=== PATIENT | female | born 1990 | race Caucasian/White ===

== ENCOUNTER → 2017-09-03 | Outpatient (CLI) | payer MEDICAID ==
--- NOTE | 2017-09-03 16:30 | Diagnostic Imaging Report ---
EXAMINATION: OB ultrasound. INDICATION: dating. TECHNIQUE: Multiple real-time grayscale images were obtained over the gravid uterus. COMPARISON: There are no prior studies available for comparison. FINDINGS: There is a single live fetus in variable presentation. heart motion was noted and a rate of 155 BPM was recorded. There were no abnormalities identified. The growth parameters are fairly uniform. The placenta is anterior and there is no previa. The amniotic fluid volume is within normal limits. IMPRESSION: 1. There is a single live fetus at approximately 15 weeks 6 days gestation +/-1 week. The EDC is February 19, 2018. 2. There were no abnormalities identified. 3. The growth parameters are fairly uniform. Biometrical measurements are as follows: Biparietal 3.25 cm, age 16 weeks 1 days. Head circumference 11.53 cm, age 15 weeks 5 days. Abdominal circumference 9.77 cm, age 15 weeks 6 days. Femur length 1.91 cm, age 15 weeks 5 days. Sonographic estimate age: 15 weeks 6 days. Sonographic estimated date of delivery: 02/19/2018. Estimated Weight: 134 gm (+/- 20 gm). LMP percentile: 34%. heart rate: 155 beats per minute. number: 1 of 1. Dictated on workstation # [id number]
== END ==
LOC: RAD 14:22
PROVIDERS: ATTEND Family Medicine
DX: Z36.89 Encounter for other specified antenatal screening (principal); Z3A.15 15 weeks gestation of pregnancy
CPT/HCPCS: 76805

== ENCOUNTER → 2017-10-22 | Outpatient (CLI) | payer MEDICAID, OTHER ==
--- NOTE | 2017-10-22 15:58 | Diagnostic Imaging Report ---
INDICATION: survey. TECHNIQUE: Multiple real-time grayscale images were obtained over the gravid uterus. COMPARISON: 09/03/2017. FINDINGS: There is a single live fetus in a cephalic presentation. Placenta is anterior. The amniotic fluid volume is normal. heart rate is recorded at 160 beats per minute. kidneys, bladder, and stomach are unremarkable. brain is unremarkable, although the right ventricle was not as well seen. There is a four-chamber heart. There is a three-vessel cord but cord insertion was not well visualized. spine is limited in evaluation. Biometrical measurements are as follows: Biparietal 5.61 cm, age 23 weeks 1 days. Head circumference 20.63 cm, age 22 weeks 6 days. Abdominal circumference 17.28 cm, age 22 weeks 2 days. Femur length 3.84 cm, age 22 weeks 3 days. Sonographic estimate age: 22 weeks 5 days. Sonographic estimated date of delivery: 02/20/18. Estimated Weight: 496 gm (+/- 72 gm). LMP percentile: 21%. heart rate: 160 beats per minute. number: 1 of 1. IMPRESSION: Single live IUP at approximately 22 to 23 weeks gestational age demonstrating normal interval growth when compared with prior exam from 09/03/2017. survey is unremarkable, although spine and cord insertion evaluation was somewhat limited. In addition, portions of the intracranial evaluation were limited. Followup ultrasound could be performed for further evaluation. Dictated by: Dictated on workstation # [id number]
== END ==
LOC: RAD 14:54
PROVIDERS: ATTEND Family Medicine
DX: Z36.89 Encounter for other specified antenatal screening (principal); Z3A.22 22 weeks gestation of pregnancy
CPT/HCPCS: 76805

== ENCOUNTER 2018-02-04 13:59 | Inpatient (IN) | payer MEDICAID, OTHER ==
[~2018-02-04] VITALS: Ht 153.7 cm; Wt 74.8 kg
[2018-02-04] MEDS ORDERED: PREN-37 PO (14:19)
[2018-02-04 14:37] VITALS: BP 113/67
--- OUTSIDE RECORDS SUMMARY | 2018-02-12 12:06 | XMS REPORT ---
Author Author ESMER FIERRO Organization [facility] Address [address] [place] [address] Care Team Providers Care Auto Electrical Technician Name Role Phone ESMER FIERRO Unavailable PROBLEMS Type Condition ICD9-CM Code ZRO66-TF Code Onset Dates Condition Status SNOMED Code Problem Previous section complicating O34.219 Active 798828022 ALLERGIES No Information ENCOUNTERS Encounter Location Date Diagnosis [place] [address] [place] [id number] [place] [address] 81231- 3491 Jan, [place] [address] [address]402- 2029 Jan, 38 weeks gestation of Z3A.38 ; Third trimester Z34.93 and Previous section complicating O34.219 [facility] [id number] [place] [address] 88072- 4010 Dec, Third trimester Z34.93 and 36 weeks gestation of Z3A.36 [place] [id number] [place] [address] 25687- 9702 Dec, 34 weeks gestation of Z3A.34 and Third trimester Z34.93 [place] [id number] [place] [address] 65880- 4243 Nov, care in third trimester Z34.93 ; 32 weeks gestation of Z3A.32 and Previous section complicating O34.219 [place] [id number] [place] [address] 23865- 6178 Nov, care in third trimester Z34.93 ; 30 weeks gestation of Z3A.30 and Encounter for immunization Z23 [place] [id number] [place] [address] 75901- 3075 14 Oct, 2017 Second trimester Z34.92 [place] [address], [place] [address] 9144 Oct, Second trimester Z34.92 ; 25 weeks gestation of Z3A.25 and Previous section complicating O34.219 [place] [address], [place] [address] 7884 14 Sep, 2017 22 weeks gestation of Z3A.22 [place] [id number] [place] [address] 13696- 8591 September, Second trimester Z34.92 ; 20 weeks gestation of Z3A.20 and Previous section complicating O34.219 [place] [address], [place] [address]- 1354 Jul, [place] [id number] [place] [address] 36787- 6448 Jul, Second trimester Z34.92 and 15 weeks gestation of Z3A.15 [place] [id number] [place] [address] 70289- 6134 Jul, [place] [id number] [place] [address] 37818- 9219 Jul, Normal in multigravida Z34.80 ; 11 weeks gestation of Z3A.11 and Previous section complicating O34.219 [place] [address] [place] [address] 26972- 5414 Jul, [place] [address], [place] [address]- 6946 Jul, Encounter for test Z32.00 IMMUNIZATIONS No Known Immunizations SOCIAL HISTORY Never Assessed REASON FOR VISIT OB f/u -- edward vail PLAN OF CARE Activity Details Follow Up 2 Weeks Reason: VITAL SIGNS Height 4'11" in 2017-12-21 Weight 158.6 lbs 2017-12-21 Temperature 97.2 degrees Fahrenheit 2017-12-21 Heart Rate 78 bpm 2017-12-21 Respiratory Rate 18 2017-12-21 BMI 32.03 kg/m2 2017-12-21 Blood pressure systolic 118 mmHg 2017-12-21 Blood pressure diastolic 76 mmHg 2017-12-21 MEDICATIONS Medication Instructions Dosage Frequency Start Date End Date Duration Status Vitamins - (Dis) Active RESULTS Name Result Date Reference Range UA OB DIP (IN HOUSE) 2017-12-21 Glucose neg Protein trace PROCEDURES Procedure Date Ordered Result Body Site URINE-NO MICRO December 21, 2017 INSTRUCTIONS MEDICATIONS ADMINISTERED No Known Medications MEDICAL (GENERAL) HISTORY Type Description Date Surgical History 10/2009 Surgical History 03/2013
--- OUTSIDE RECORDS SUMMARY | 2018-02-12 12:06 | XMS REPORT ---
Author Author ESMER FIERRO Organization [facility] Address [address] [place] [address] Care Team Providers Care Furnace Tapper Name Role Phone ESMER FIERRO Unavailable PROBLEMS Type Condition ICD9-CM Code LOG54-VE Code Onset Dates Condition Status SNOMED Code Problem Previous section complicating O34.219 Active [id number] ALLERGIES No Information ENCOUNTERS Encounter Location Date Diagnosis [place] [address] [id number] [place] [address] 31455- 3673 Jan, [place] [address] [address]- 7411 Jan, 38 weeks gestation of Z3A.38 ; Third trimester Z34.93 and Previous section complicating O34.219 [facility] [id number] [place] [address] 72847- 9294 Dec, Third trimester Z34.93 and 36 weeks gestation of Z3A.36 [place] [id number] [place] [address] 19531- 7984 Dec, 34 weeks gestation of Z3A.34 and Third trimester Z34.93 [place] [id number] [place] [address] 30576- 2337 Nov, care in third trimester Z34.93 ; 32 weeks gestation of Z3A.32 and Previous section complicating O34.219 [place] [id number] [place] [address] 67640- 4845 Nov, care in third trimester Z34.93 ; 30 weeks gestation of Z3A.30 and Encounter for immunization Z23 [place] [id number] [place] [address] 18912- 9906 14 Oct, 2017 Second trimester Z34.92 [place] [address] [place] [address] 81907- 5536 07 Oct, 2017 Second trimester Z34.92 ; 25 weeks gestation of Z3A.25 and Previous section complicating O34.219 [place] [address], [place] [address] 3883 14 Sep, 2017 22 weeks gestation of Z3A.22 [place] [id number] [place] [address] 02249- 5624 03 Sep, 2017 Second trimester Z34.92 ; 20 weeks gestation of Z3A.20 and Previous section complicating O34.219 [place] [id number] [place] [address] 97563- 0292 Jul, [place] [id number] [place] [address] 62423- 3669 Jul, Second trimester Z34.92 and 15 weeks gestation of Z3A.15 [place] [id number] [place] [address] 57331- 2588 Jul, [place] [id number] [place] [address] 99777- 4007 Jul, Normal in multigravida Z34.80 ; 11 weeks gestation of Z3A.11 and Previous section complicating O34.219 [place] [address] [place] [address] 16202- 7463 Jul, [place] [address] [place] [address] 91388- 7656 Jul, Encounter for test Z32.00 IMMUNIZATIONS Vaccine Route Administration Date Status TDAP (BOOSTRIX) IM Intramuscular December 10, 2017 Administered SOCIAL HISTORY Never Assessed REASON FOR VISIT OB 4wk f/u -- edward vail PLAN OF CARE Activity Details Follow Up 2 Weeks Reason: Pending Test UA OB DIP (IN HOUSE) VITAL SIGNS Height 4'11" in 2017-12-10 Weight 156.0 lbs 2017-12-10 Temperature 97.0 degrees Fahrenheit 2017-12-10 BMI 31.50 kg/m2 2017-12-10 Blood pressure systolic 116 mmHg 2017-12-10 Blood pressure diastolic 68 mmHg 2017-12-10 MEDICATIONS Medication Instructions Dosage Frequency Start Date End Date Duration Status Vitamins - (Dis) Active RESULTS No Results PROCEDURES Procedure Date Ordered Result Body Site URINE-NO MICRO December 10, 2017 TDAP (BOOSTRIX) December 10, 2017 SINGLE IMMUNIZATION ADMIN December 10, 2017 INSTRUCTIONS MEDICATIONS ADMINISTERED No Known Medications MEDICAL (GENERAL) HISTORY Type Description Date Surgical History 10/2009 Surgical History 03/2013
--- OUTSIDE RECORDS SUMMARY | 2018-02-12 12:07 | XMS REPORT ---
Author Author ESMER FIERRO Organization [facility] Address [address] [place] [address] Care Team Providers Care Title 1 Tutor Name Role Phone ESMER FIERRO Unavailable PROBLEMS Type Condition ICD9-CM Code FMW57-EV Code Onset Dates Condition Status SNOMED Code Problem Previous section complicating O34.219 Active 145230079 ALLERGIES No Information ENCOUNTERS Encounter Location Date Diagnosis [place] [id number] [place] [address] 50548- 5282 Jan, [place] [id number] [place] [address] 46344- 4861 Jan, [place] [id number] [place] [address] 76390- 7318 Dec, [place] [id number] [place] [address] 92960- 3439 Dec, 34 weeks gestation of Z3A.34 and Third trimester Z34.93 [place] [address] [place] [address] 46937- 0223 Nov, care in third trimester Z34.93 ; 32 weeks gestation of Z3A.32 and Previous section complicating O34.219 [facility] [address] [place] [address] 99289- 2434 Nov, care in third trimester Z34.93 ; 30 weeks gestation of Z3A.30 and Encounter for immunization Z23 [place] [id number] [place] [address] 02632- 3933 Oct, Second trimester Z34.92 [place] [id number] [place] [address] 90625- 0229 Oct, Second trimester Z34.92 ; 25 weeks gestation of Z3A.25 and Previous section complicating O34.219 [place] [address], [place] [address]- 8588 September, 22 weeks gestation of Z3A.22 [place] [address], [place] [address]- 1521 September, Second trimester Z34.92 ; 20 weeks gestation of Z3A.20 and Previous section complicating O34.219 [place] [address], [place] [address]- 7998 Jul, [place] [id number] [place] [address] 33170- 9001 Jul, Second trimester Z34.92 and 15 weeks gestation of Z3A.15 [place] [id number] [place] [address] 80587- 8847 Jul, [place] [id number] [place] [address] 47666- 9959 Jul, Normal in multigravida Z34.80 ; 11 weeks gestation of Z3A.11 and Previous section complicating O34.219 [place] [address], [place] [address]- 7769 Jul, [place] [address] [place] [address] 36031- 7460 Jul, Encounter for test Z32.00 IMMUNIZATIONS No Known Immunizations SOCIAL HISTORY Never Assessed REASON FOR VISIT Ultrasound apt. PLAN OF CARE VITAL SIGNS MEDICATIONS Unknown Medications RESULTS Name Result Date Reference Range Ultrasound : OB, Follow-up 2017-10-22 PROCEDURES No Known procedures INSTRUCTIONS MEDICATIONS ADMINISTERED No Known Medications MEDICAL (GENERAL) HISTORY Type Description Date Surgical History 10/2009 Surgical History 03/2013
--- OUTSIDE RECORDS SUMMARY | 2018-02-12 12:07 | XMS REPORT ---
Author Author ESMER FIERRO Organization [facility] Address [address] [place] [address] Care Team Providers Care Adhesive Bonding Machine Operator Name Role Phone ESMER FIERRO Unavailable PROBLEMS Type Condition ICD9-CM Code VPS79-ED Code Onset Dates Condition Status SNOMED Code Problem Previous section complicating O34.219 Active [id number] ALLERGIES No Known Allergies ENCOUNTERS Encounter Location Date Diagnosis [place] [address] [address] [id number] [place] [address] 61355- 1665 Dec, [place] [address] [id number] [place] [address] 13073- 8939 Nov, care in third trimester Z34.93 ; 32 weeks gestation of Z3A.32 and Previous section complicating O34.219 [place] [address] [place] [address] [id number] [place] [address] 25754- 7094 Nov, care in third trimester Z34.93 ; 30 weeks gestation of Z3A.30 and Encounter for immunization Z23 [place] [address] [address] [id number] [place] [address] 66497- 8506 Oct, Second trimester Z34.92 [place] [address] 11624- 8637 Oct, Second trimester Z34.92 ; 25 weeks gestation of Z3A.25 and Previous section complicating O34.219 [place] [address] 33441- 3609 September, 22 weeks gestation of Z3A.22 [place] [address] [id number] [place] [address] 82670- 1821 September, Second trimester Z34.92 ; 20 weeks gestation of Z3A.20 and Previous section complicating O34.219 [place] [address] [place] [address] 68178- 3129 Jul, [place] [address] [address] [id number] [place] [address] 86994- 2067 29 Jul, 2017 Second trimester Z34.92 and 15 weeks gestation of Z3A.15 [place] [address] [address] [id number] [place] [address] 48736- 6733 13 Jul, 2017 [place] [address] [id number] [place] [address] 48911- 0210 Jul, Normal in multigravida Z34.80 ; 11 weeks gestation of Z3A.11 and Previous section complicating O34.219 [place] [address] [id number] [place] [address] 49839- 1879 Jul, [place] [address] [place] [address] [id number] [place] [address] 92276- 5132 Jul, Encounter for test Z32.00 IMMUNIZATIONS No Known Immunizations SOCIAL HISTORY Never Assessed REASON FOR VISIT OB 4wk f/u -- edward vail, patient states she is having nauseas and states is taking a ondasetron prescription from her friend that is and she wants the doctor to prescribed the same for her she doesn't care if the medicine is expensive states will pay for it. PLAN OF CARE Activity Details Follow Up 4 Weeks Reason: VITAL SIGNS Height 4'11" in 2017-08-27 Weight 138.0 lbs 2017-08-27 Temperature 98.7 degrees Fahrenheit 2017-08-27 BMI 27.87 kg/m2 2017-08-27 Blood pressure systolic 110 mmHg 2017-08-27 Blood pressure diastolic 78 mmHg 2017-08-27 MEDICATIONS Unknown Medications RESULTS Name Result Date Reference Range UA OB DIP (IN HOUSE) 2017-08-27 Glucose neg Protein trace PROCEDURES Procedure Date Ordered Result Body Site URINE-NO MICRO August 27, 2017 INSTRUCTIONS MEDICATIONS ADMINISTERED No Known Medications MEDICAL (GENERAL) HISTORY Type Description Date Surgical History 10/2009 Surgical History 03/2013
--- OUTSIDE RECORDS SUMMARY | 2018-02-12 12:07 | XMS REPORT ---
Author Author ESMER FIERRO Organization [facility] Address [address] [place] [address] Care Team Providers Care Perforator Typist Name Role Phone ESMER FIERRO Unavailable PROBLEMS Type Condition ICD9-CM Code ZIC36-IF Code Onset Dates Condition Status SNOMED Code Problem Previous section complicating O34.219 Active [id number] ALLERGIES No Information ENCOUNTERS Encounter Location Date Diagnosis [place] [address] [address] [id number] [place] [address] 51762- 6837 Jan, [place] [id number] [place] [address] 42129- 1526 Jan, [place] [address] [address] [id number] [place] [address] 40300- 9114 Dec, [place] [id number] [place] [address] 63826- 1097 Dec, 34 weeks gestation of Z3A.34 and Third trimester Z34.93 [place] [address] [place] [address] 84214- 3846 Nov, care in third trimester Z34.93 ; 32 weeks gestation of Z3A.32 and Previous section complicating O34.219 [facility] [address] [place] [address] 59302- 2031 Nov, care in third trimester Z34.93 ; 30 weeks gestation of Z3A.30 and Encounter for immunization Z23 [place] [id number] [place] [address] 01380- 2368 Oct, Second trimester Z34.92 [place] [id number] [place] [address] 43130- 1511 Oct, Second trimester Z34.92 ; 25 weeks gestation of Z3A.25 and Previous section complicating O34.219 [place] [id number] [address]- 5804 14 Sep, 2017 22 weeks gestation of Z3A.22 [place] [id number] [place] [address] 27034- 3459 September, Second trimester Z34.92 ; 20 weeks gestation of Z3A.20 and Previous section complicating O34.219 [place] [id number] [address]- 6011 Jul, [place] [id number] [place] [address] 52059- 5876 Jul, Second trimester Z34.92 and 15 weeks gestation of Z3A.15 [place] [address] [id number] [place] [address] 41292- 1711 Jul, [place] [id number] [place] [address] 97794- 3143 Jul, Normal in multigravida Z34.80 ; 11 weeks gestation of Z3A.11 and Previous section complicating O34.219 [place] [address] [address]- 6992 Jul, [place] [address] [id number] [place] [address] 87416- 6134 Jul, Encounter for test Z32.00 IMMUNIZATIONS No Known Immunizations SOCIAL HISTORY Never Assessed REASON FOR VISIT OB 4wk f/u -- edward vail PLAN OF CARE Activity Details Follow Up 4 Weeks Reason: VITAL SIGNS Height 4'11" in 2017-10-01 Weight 142.7 lbs 2017-10-01 Temperature 98.0 degrees Fahrenheit 2017-10-01 Heart Rate 70 bpm 2017-10-01 Respiratory Rate 18 2017-10-01 BMI 28.82 kg/m2 2017-10-01 Blood pressure systolic 108 mmHg 2017-10-01 Blood pressure diastolic 68 mmHg 2017-10-01 MEDICATIONS Medication Instructions Dosage Frequency Start Date End Date Duration Status Vitamins - (Dis) Active RESULTS Name Result Date Reference Range UA OB DIP (IN HOUSE) 2017-10-01 Glucose negative Protein negative PROCEDURES Procedure Date Ordered Result Body Site URINE-NO MICRO October 01, 2017 INSTRUCTIONS MEDICATIONS ADMINISTERED No Known Medications MEDICAL (GENERAL) HISTORY Type Description Date Surgical History 10/2009 Surgical History 03/2013
--- OUTSIDE RECORDS SUMMARY | 2018-02-12 12:07 | XMS REPORT ---
Author Author ESMER FIERRO Organization [facility] Address [address] [place] [address] Care Team Providers Care Systems Trainer Name Role Phone ESMER FIERRO Unavailable PROBLEMS Type Condition ICD9-CM Code AYA20-SY Code Onset Dates Condition Status SNOMED Code Problem Previous section complicating O34.219 Active [id number] ALLERGIES No Information ENCOUNTERS Encounter Location Date Diagnosis [place] [address] [place] [id number] [place] [address] 43477- 3285 Jan, [place] [id number] [place] [address] 71609- 0608 Jan, [place] [address] [place] [id number] [place] [address] 28840- 1666 Dec, Third trimester Z34.93 and 36 weeks gestation of Z3A.36 [place] [id number] [place] [address] 64871- 2239 Dec, 34 weeks gestation of Z3A.34 and Third trimester Z34.93 [place] [address] [place] [address] 31884- 0717 Nov, care in third trimester Z34.93 ; 32 weeks gestation of Z3A.32 and Previous section complicating O34.219 [place] [address] [place] [address] 22773- 3966 Nov, care in third trimester Z34.93 ; 30 weeks gestation of Z3A.30 and Encounter for immunization Z23 [place] [address] [place] [address] 08409- 5771 Oct, Second trimester Z34.92 [place] [address] [address]- 1361 Oct, Second trimester Z34.92 ; 25 weeks gestation of Z3A.25 and Previous section complicating O34.219 [place] [address] [address]- 4823 September, 22 weeks gestation of Z3A.22 [place] [id number] [place] [address] 29686- 0943 September, Second trimester Z34.92 ; 20 weeks gestation of Z3A.20 and Previous section complicating O34.219 [place] [id number] [place] [address] [id number]- 2300 Jul, [place] [id number] [place] [address] 73429- 9253 Jul, Second trimester Z34.92 and 15 weeks gestation of Z3A.15 [place] [id number], [place] [address]- 3181 Jul, [place] [id number] [place] [address] 60025- 9621 Jul, Normal in multigravida Z34.80 ; 11 weeks gestation of Z3A.11 and Previous section complicating O34.219 [place] [address], [place] [address]- 4679 Jul, [place] [address] [place] [address] [phone]- 9715 Jul, Encounter for test Z32.00 IMMUNIZATIONS No Known Immunizations SOCIAL HISTORY Never Assessed REASON FOR VISIT Lab (walk-in) PLAN OF CARE VITAL SIGNS MEDICATIONS Unknown Medications RESULTS No Results PROCEDURES Procedure Date Ordered Result Body Site COMPLETE CBC W/AUTO DIFF WBC November 12, 2017 GLUCOSE TEST November 12, 2017 VENIPUNCT, ROUTINE* November 12, 2017 INSTRUCTIONS MEDICATIONS ADMINISTERED No Known Medications MEDICAL (GENERAL) HISTORY Type Description Date Surgical History 10/2009 Surgical History 03/2013
--- OUTSIDE RECORDS SUMMARY | 2018-02-12 12:07 | XMS REPORT ---
Author Author MARGUERITE DUY [facility] Address [address] [place] [address] Care Team Providers Care Ribbon Weaver Name Role Phone MARGUERITESERGEI ANDUJARY Unavailable PROBLEMS Type Condition ICD9-CM Code AHH39-MK Code Onset Dates Condition Status SNOMED Code Problem Previous section complicating O34.219 Active 598064382 ALLERGIES No Known Allergies ENCOUNTERS Encounter Location Date Diagnosis [place] [id number] [place] [address] 34983- 5510 Nov, [place] [id number] [place] [address] 56703- 6037 Oct, Second trimester Z34.92 [place] [id number] [place] [address] 92669- 3906 Oct, Second trimester Z34.92 ; 25 weeks gestation of Z3A.25 and Previous section complicating O34.219 [place] [address] [place] [address] 52131- 1828 September, 22 weeks gestation of Z3A.22 [place] [id number] [place] [address] 52234- 9011 September, Second trimester Z34.92 ; 20 weeks gestation of Z3A.20 and Previous section complicating O34.219 [place] [id number] [place] [address] 48284- 8754 Jul, [place] [id number] [place] [address] 51280- 0525 Jul, Second trimester Z34.92 and 15 weeks gestation of Z3A.15 [place] [address] [place] [address] [place] [address] Jul, [facility] [address] [address] Jul, Normal in multigravida Z34.80 ; 11 weeks gestation of Z3A.11 and Previous section complicating O34.219 [facility] [address] [address] Jul, [facility] [address] [address] Jul, Encounter for test Z32.00 IMMUNIZATIONS No Known Immunizations SOCIAL HISTORY Never Assessed REASON FOR VISIT OB HX PLAN OF CARE VITAL SIGNS MEDICATIONS Unknown Medications RESULTS No Results PROCEDURES No Known procedures INSTRUCTIONS MEDICATIONS ADMINISTERED No Known Medications MEDICAL (GENERAL) HISTORY Type Description Date Surgical History 10/2009 Surgical History 03/2013
--- OUTSIDE RECORDS SUMMARY | 2018-02-12 12:07 | XMS REPORT ---
Author Author ESMER FIERRO Organization [facility] Address [address] [place] [address] Care Team Providers Care Student Union Consultant Name Role Phone ESMER FIERRO Unavailable PROBLEMS Type Condition ICD9-CM Code NDD31-GO Code Onset Dates Condition Status SNOMED Code Problem Previous section complicating O34.219 Active 407003219 ALLERGIES No Information ENCOUNTERS Encounter Location Date Diagnosis [place] [id number] [place] [address] 52158- 6614 Nov, [place] [id number] [place] [address] 32340- 7322 Nov, care in third trimester Z34.93 ; 30 weeks gestation of Z3A.30 and Encounter for immunization Z23 [place] [id number] [place] [address] 49076- 9025 Oct, Second trimester Z34.92 [place] [id number] [place] [address] 86022- 3024 Oct, Second trimester Z34.92 ; 25 weeks gestation of Z3A.25 and Previous section complicating O34.219 [place] [address] [place] [address] 56752- 5542 September, 22 weeks gestation of Z3A.22 [place] [id number] [place] [address] 10323- 4569 September, Second trimester Z34.92 ; 20 weeks gestation of Z3A.20 and Previous section complicating O34.219 [place] [id number] [place] [address] 90485- 5032 Jul, [place] [address] [address] 5[address] 29 Jul, 2017 Second trimester Z34.92 and 15 weeks gestation of Z3A.15 [place] [address] [address] 8003 Jul, [place] [address] [address] 8939 Jul, Normal in multigravida Z34.80 ; 11 weeks gestation of Z3A.11 and Previous section complicating O34.219 [place] [address] [address] 7414 Jul, [place] [address] [address] 5989 Jul, Encounter for test Z32.00 IMMUNIZATIONS No Known Immunizations SOCIAL HISTORY Never Assessed REASON FOR VISIT treatment for positive std's Chlamydia -- [facility] PLAN OF CARE VITAL SIGNS MEDICATIONS Unknown Medications RESULTS No Results PROCEDURES No Known procedures INSTRUCTIONS MEDICATIONS ADMINISTERED No Known Medications MEDICAL (GENERAL) HISTORY Type Description Date Surgical History 10/2009 Surgical History 03/2013
--- OUTSIDE RECORDS SUMMARY | 2018-02-12 12:07 | XMS REPORT ---
Author Author WHITNEY LIEBERMAN Organization [facility] [place] Address [address] [place] [address] Care Team Providers Care Marketing Services Manager Name Role Phone LUISANA WHITNEY Unavailable PROBLEMS Type Condition ICD9-CM Code ZPY46-BA Code Onset Dates Condition Status SNOMED Code Problem Previous section complicating O34.219 Active 088337479 ALLERGIES No Information ENCOUNTERS Encounter Location Date Diagnosis [place] [id number] [place] [address] 53612- 5331 Nov, [place] [id number] [place] [address] 89144- 0289 Oct, Second trimester Z34.92 [place] [id number] [place] [address] 33500- 6348 Oct, Second trimester Z34.92 ; 25 weeks gestation of Z3A.25 and Previous section complicating O34.219 [place] [address] [place] [address] 01229- 8852 September, 22 weeks gestation of Z3A.22 [place] [address] [place] [address] 92327- 0864 September, Second trimester Z34.92 ; 20 weeks gestation of Z3A.20 and Previous section complicating O34.219 [place] [address] [place] [address] 51594- 0446 Jul, [place] [id number] [place] [address] 91474- 7688 Jul, Second trimester Z34.92 and 15 weeks gestation of Z3A.15 [place] [id number] [place] [address] 25208- 2546 Jul, [facility] [place] [address] [facility] [id number] [address] 2546 Jul, Normal in multigravida Z34.80 ; 11 weeks gestation of Z3A.11 and Previous section complicating O34.219 [place] [address] [facility] [place] [id number] [address] 2546 Jul, [place] [address] [facility] [place] [id number] [address] 2546 Jul, Encounter for test Z32.00 IMMUNIZATIONS No Known Immunizations SOCIAL HISTORY Never Assessed REASON FOR VISIT [facility]AN OF CARE VITAL SIGNS MEDICATIONS Unknown Medications RESULTS Name Result Date Reference Range TEST, URINE (IN HOUSE) 2017-07-03 RESULTS POSITIVE Lot # [id number] Control + Exp date 09/2018 PROCEDURES Procedure Date Ordered Result Body Site URINE TEST Jul 03, 2017 INSTRUCTIONS MEDICATIONS ADMINISTERED No Known Medications MEDICAL (GENERAL) HISTORY Type Description Date Surgical History 10/2009 Surgical History 03/2013
--- OUTSIDE RECORDS SUMMARY | 2018-02-12 12:07 | XMS REPORT ---
Author Author ESMER FIERRO Organization [facility] Address [address] [place] [address] Care Team Providers Care Network Systems Analyst Name Role Phone ESMER FIERRO Unavailable PROBLEMS Type Condition ICD9-CM Code WSK21-FX Code Onset Dates Condition Status SNOMED Code Problem Previous section complicating O34.219 Active 577591756 ALLERGIES No Information ENCOUNTERS Encounter Location Date Diagnosis [place] [address] [place] [id number] [place] [address] 18702- 3021 Jan, [place] [id number] [place] [address] 83881- 5690 Jan, [place] [address] [place] [id number] [place] [address] 36463- 6462 Dec, Third trimester Z34.93 and 36 weeks gestation of Z3A.36 [place] [id number] [place] [address] 32773- 6813 Dec, 34 weeks gestation of Z3A.34 and Third trimester Z34.93 [place] [address] [place] [address] 22972- 2987 Nov, care in third trimester Z34.93 ; 32 weeks gestation of Z3A.32 and Previous section complicating O34.219 [place] [address] [place] [address] 38809- 6983 Nov, care in third trimester Z34.93 ; 30 weeks gestation of Z3A.30 and Encounter for immunization Z23 [place] [address] [place] [address] 75170- 7015 Oct, Second trimester Z34.92 [place] [address], [place] [address]- 4599 Oct, Second trimester Z34.92 ; 25 weeks gestation of Z3A.25 and Previous section complicating O34.219 [place] [address], [place] [address]- 4007 September, 22 weeks gestation of Z3A.22 [place] [id number] [place] [address] 51513- 9865 September, Second trimester Z34.92 ; 20 weeks gestation of Z3A.20 and Previous section complicating O34.219 [place] [address] [place] [address] 87740- 2230 Jul, [place] [id number] [place] [address] 69795- 7243 Jul, Second trimester Z34.92 and 15 weeks gestation of Z3A.15 [place] [id number] [place] [address] 24036- 0050 Jul, [place] [id number] [place] [address] 09021- 2687 Jul, Normal in multigravida Z34.80 ; 11 weeks gestation of Z3A.11 and Previous section complicating O34.219 [place] [address], [place] [address]- 3319 Jul, [place] [id number] [place] [address] 22110- 8850 Jul, Encounter for test Z32.00 IMMUNIZATIONS No Known Immunizations SOCIAL HISTORY Never Assessed REASON FOR VISIT OB 4wk f/u -- [facility] PLAN OF CARE Activity Details Follow Up 4 Weeks Reason: VITAL SIGNS Height 4'11" in 2017-11-05 Weight 149 lbs 2017-11-05 Temperature 98.0 degrees Fahrenheit 2017-11-05 BMI 30.09 kg/m2 2017-11-05 Blood pressure systolic 110 mmHg 2017-11-05 Blood pressure diastolic 68 mmHg 2017-11-05 MEDICATIONS Medication Instructions Dosage Frequency Start Date End Date Duration Status Vitamins - (Dis) Active RESULTS Name Result Date Reference Range UA OB DIP (IN HOUSE) 2017-11-05 Glucose negative Protein negative PROCEDURES Procedure Date Ordered Result Body Site URINE-NO MICRO November 05, 2017 INSTRUCTIONS MEDICATIONS ADMINISTERED No Known Medications MEDICAL (GENERAL) HISTORY Type Description Date Surgical History 10/2009 Surgical History 03/2013
--- OUTSIDE RECORDS SUMMARY | 2018-02-12 12:07 | XMS REPORT ---
Author Author ESMER FIERRO Organization [facility] Address [address] [place] [address] Care Team Providers Care Maitre D' Name Role Phone ESMER FIERRO Unavailable PROBLEMS Type Condition ICD9-CM Code JMZ93-KW Code Onset Dates Condition Status SNOMED Code Problem Previous section complicating O34.219 Active 391064361 ALLERGIES No Information ENCOUNTERS Encounter Location Date Diagnosis [place] [id number] [place] [address] 11089- 9223 Nov, [place] [id number] [place] [address] 55145- 4825 Nov, care in third trimester Z34.93 ; 30 weeks gestation of Z3A.30 and Encounter for immunization Z23 [place] [id number] [place] [address] 58374- 7817 Oct, Second trimester Z34.92 [place] [id number] [place] [address] 86530- 8199 Oct, Second trimester Z34.92 ; 25 weeks gestation of Z3A.25 and Previous section complicating O34.219 [place] [address] [place] [address] 09368- 1834 September, 22 weeks gestation of Z3A.22 [place] [id number] [place] [address] 93200- 7258 September, Second trimester Z34.92 ; 20 weeks gestation of Z3A.20 and Previous section complicating O34.219 [place] [id number] [place] [address] 98618- 7060 Jul, [place] [address], [place] [address]- 7928 Jul, Second trimester Z34.92 and 15 weeks gestation of Z3A.15 [place] [address], [place] [address]- 6047 Jul, [place] [address], [place] [address]- 5875 Jul, Normal in multigravida Z34.80 ; 11 weeks gestation of Z3A.11 and Previous section complicating O34.219 [place] [address], [place] [address]- 2333 Jul, [place] [address] [place] [address] 09534- 7573 Jul, Encounter for test Z32.00 IMMUNIZATIONS No Known Immunizations SOCIAL HISTORY Never Assessed REASON FOR VISIT Presumptive Eligibility-Approved PLAN OF CARE VITAL SIGNS MEDICATIONS Unknown Medications RESULTS No Results PROCEDURES No Known procedures INSTRUCTIONS MEDICATIONS ADMINISTERED No Known Medications MEDICAL (GENERAL) HISTORY Type Description Date Surgical History 10/2009 Surgical History 03/2013
--- OUTSIDE RECORDS SUMMARY | 2018-02-12 12:07 | XMS REPORT ---
Author Author ESMER FIERRO Organization [facility] Address [address] [place] [address] Care Team Providers Care Pinmaker Name Role Phone ESMER FIERRO Unavailable PROBLEMS Type Condition ICD9-CM Code RDW18-JD Code Onset Dates Condition Status SNOMED Code Problem Previous section complicating O34.219 Active 779794062 ALLERGIES No Known Allergies ENCOUNTERS Encounter Location Date Diagnosis [place] [id number] [place] [address] 78175- 0858 Dec, [place] [id number] [place] [address] 08433- 9064 Nov, care in third trimester Z34.93 ; 32 weeks gestation of Z3A.32 and Previous section complicating O34.219 [place] [address] [id number] [place] [address] 36319- 4654 Nov, care in third trimester Z34.93 ; 30 weeks gestation of Z3A.30 and Encounter for immunization Z23 [place] [id number] [place] [address] 16118- 7405 Oct, Second trimester Z34.92 [place] [address] 73619- 8156 Oct, Second trimester Z34.92 ; 25 weeks gestation of Z3A.25 and Previous section complicating O34.219 [place] [address] 39030- 0643 September, 22 weeks gestation of Z3A.22 [place] [id number] [place] [address] 37140- 1035 September, Second trimester Z34.92 ; 20 weeks gestation of Z3A.20 and Previous section complicating O34.219 [place] [address], [place] [address]- 8353 29 Jul, 2017 [place] [address], [place] [address]- 3209 29 Jul, 2017 Second trimester Z34.92 and 15 weeks gestation of Z3A.15 [place] [id number] [place] [address] 77832- 8682 13 Jul, 2017 [place] [address] [place] [address] 61613- 1695 Jul, Normal in multigravida Z34.80 ; 11 weeks gestation of Z3A.11 and Previous section complicating O34.219 [place] [address] [place] [address] 98940- 3389 Jul, [place] [id number] [place] [address] 46720- 8286 Jul, Encounter for test Z32.00 IMMUNIZATIONS No Known Immunizations SOCIAL HISTORY Never Assessed REASON FOR VISIT OB-intake -- [facility] PLAN OF CARE Activity Details Follow Up 4 Weeks Reason: Pending Test PAP REFLEX TO HPV IF ASCUS VITAL SIGNS Height 4'11" in 2017-07-30 Weight 135.0 lbs 2017-07-30 Temperature 98.0 degrees Fahrenheit 2017-07-30 BMI 27.26 kg/m2 2017-07-30 Blood pressure systolic 110 mmHg 2017-07-30 Blood pressure diastolic 68 mmHg 2017-07-30 MEDICATIONS Unknown Medications RESULTS No Results PROCEDURES Procedure Date Ordered Result Body Site ASSAY THYROID STIM HORMONE July 30, 2017 RUBELLA ANTIBODY July 30, 2017 VENIPUNCT, ROUTINE* July 30, 2017 No Charge July 30, 2017 TRICHOMONAS ASSAY W/OPTIC July 30, 2017 COMPLETE CBC W/AUTO DIFF WBC July 30, 2017 SPECIMEN HANDLING July 30, 2017 CULTURE, BACTERIA, OTHER July 30, 2017 URINE CULTURE/COLONY COUNT July 30, 2017 RBC ANTIBODY SCREEN July 30, 2017 BLOOD TYPING, ABO July 30, 2017 BLOOD TYPING, RH (D) July 30, 2017 INSTRUCTIONS MEDICATIONS ADMINISTERED No Known Medications MEDICAL (GENERAL) HISTORY Type Description Date Surgical History 10/2009 Surgical History 03/2013
[2018-02-12] MEDS ORDERED: CITRIC ACID/SOB CIT (BICITRA) 30 ML UDC ONE (12:08)
[2018-02-12] MEDS ORDERED: raNItidine 50 MG/2 ML INJ (ZANTAC) ONE (12:08)
[2018-02-12] MEDS ORDERED: METOCLOPRAMIDE INJ 10 MG/2 ML (REGLAN) ONE (12:08)
[2018-02-12] MEDS ORDERED: NS (IVPB) 50 ML ONE (12:08)
[2018-02-12] MEDS ORDERED: ceFAZolin 2 GM IV Premixed 50 ML ONE (12:08)
[2018-02-12 12:11] VITALS: BP 109/69
[2018-02-12] MEDS ORDERED: LACTATED RINGERS 1,000 ML IV ONE (12:15)
[2018-02-12] MEDS ORDERED: LACTATED RINGERS 1,000 ML IV PRN (12:25)
[2018-02-12] MEDS ORDERED: raNItidine INJECTION 50 MG in NS (IVPB) 50 ML IV ONE (12:30)
[2018-02-12] MEDS ORDERED: METOCLOPRAMIDE INJ 10 MG/2 ML (REGLAN) IV ONE (12:30)
[2018-02-12] MEDS ORDERED: CATHETER FLUSH 10 ML SYR IV PRN (12:30)
[2018-02-12] MEDS ORDERED: CITRIC ACID/SOB CIT (BICITRA) 30 ML UDC PO ONE (12:30)
[2018-02-12 12:43] LABS: BASOPHILS # (AUTO) 0.1 10^3/uL (0.0-0.1); BASOPHILS % (AUTO) 1 % (0-10); EOSINOPHILS # (AUTO) 0.7 10^3/uL (0.0-0.3); EOSINOPHILS % (AUTO) 11 % (0-10); HEMATOCRIT 35 % (35-52); HEMOGLOBIN 11.6 G/DL (11.5-16.0); LYMPHOCYTES # (AUTO) 1.9 X 10^3 (1.0-4.0); LYMPHOCYTES % (AUTO) 28 % (12-44); MEAN CORPUSCULAR HEMOGLOBIN 29 PG (25-34); MEAN CORPUSCULAR HGB CONC 33 G/DL (32-36); MEAN CORPUSCULAR VOLUME 86 FL (80-99); MEAN PLATELET VOLUME 11.7 FL (7.4-10.4); MONOCYTES # (AUTO) 0.4 X 10^3 (0.0-1.0); MONOCYTES % (AUTO) 6 % (0-12); NEUTROPHILS # (AUTO) 3.6 X 10^3 (1.8-7.8); NEUTROPHILS % (AUTO) 54 % (42-75); PLATELET COUNT 200 10^3/uL (130-400); RED BLOOD COUNT 4.06 10^6/uL (4.35-5.85); RED CELL DISTRIBUTION WIDTH 14.4 % (10.0-14.5); WHITE BLOOD COUNT 6.7 10^3/uL (4.3-11.0)
[2018-02-12] MEDS ORDERED: fentaNYL INJECTION 100 MCG/2 ML AMP ONE (13:40)
--- NOTE | 2018-02-12 13:56 | History & Physical-OB ---
OB - Chief Complaint & HPI Date/Time Date of Admission: Date of Admission: Feb 12, 2018 at 11:58 am Time Seen by Provider: 13:30 Chief Complaint/History OB-Reason for Admission/Chief: Section Hx : 3 Hx Para: 2 Expected Date of Delivery: Feb 19, 2018 Gestational Age in Weeks: 39 Indication for : desires repeat Admission Nurse Assessment Rev: Yes History of Labs O pos Antibody neg RI RPR NR HBsAg NR HIV NR GBS unknown Allergies and Home Medications Allergies Coded Allergies: No Known Drug Allergies (Unverified , 02/04/18) Home Medications Vit/Iron Fumarate/FA 1 Each Tablet, 1 EACH PO DAILY, (Reported) Patient Home Medication List Home Medication List Reviewed: Yes OB - History Hx of Present Care: Yes Ultrasounds: Normal mid trimester US Obstetrical Complications: None Medical Complications: None Patient Past Medical History n/a Social History/Family History Recent Infectious Disease Expo: No Alcohol Use: Denies Use Recreational Drug Use: No OB - Admission Exam Physical Exam HEENT: NCAT Heart: Rhythm Normal Lungs: Clear Abdomen: Gravid Extremities: Normal Reflexes: Normal Heart Rate: 130's Accelerations: Accelerations Present Decelerations: No Decelerations Short Term Variability: Present Edge Stainer Variability: Average (6-25) Contractions on Admission: None Labs Laboratory Tests Test 02/12/18 12:27 Range/Units White Blood Count 6.7 4.3-11.0 10^3/uL Red Blood Count 4.06 L 4.35-5.85 10^6/uL Hemoglobin 11.6 11.5-16.0 G/DL Hematocrit 35 35-52 % Mean Corpuscular Volume 86 80-99 FL Mean Corpuscular Hemoglobin 29 25-34 PG Mean Corpuscular Hemoglobin Concent 33 32-36 G/DL Red Cell Distribution Width 14.4 10.0-14.5 % Platelet Count 200 130-400 10^3/uL Mean Platelet Volume 11.7 H 7.4-10.4 FL Neutrophils (%) (Auto) 54 42-75 % Lymphocytes (%) (Auto) 28 12-44 % Monocytes (%) (Auto) 6 0-12 % Eosinophils (%) (Auto) 11 H 0-10 % Basophils (%) (Auto) 1 0-10 % Neutrophils # (Auto) 3.6 1.8-7.8 X 10^3 Lymphocytes # (Auto) 1.9 1.0-4.0 X 10^3 Monocytes # (Auto) 0.4 0.0-1.0 X 10^3 Eosinophils # (Auto) 0.7 H 0.0-0.3 10^3/uL Basophils # (Auto) 0.1 0.0-0.1 10^3/uL OB - Assessment/Plan/Diagnosis Assessment Assessment: section Admission Dx 27 yo @ 39 weeks Previous x 2 Admission Status: Inpatient Order (span 2 midnights) Reason for Inpatient Admission: 27 yo @ 39 weeks Previous x 2 Plan Plan: Section ALEXY WEBER DO Feb 12, 2018 1:56 pm
[2018-02-12] MEDS ORDERED: ceFAZolin 2 GM IV Premixed 50 ML IV ONE (14:00)
[2018-02-12] MEDS ORDERED: ONDANSETRON 4 MG/2 ML (SDV) Z0FRAN ONE (14:01)
[2018-02-12] MEDS ORDERED: LIDOCAINE PF 2% 2 ML (XYLOCAINE) VIAL ONE (14:01)
[2018-02-12] MEDS ORDERED: BUPIVACAINE SPINAL 0.75% (SENSORCAINE) 2 ML AMP ONE (14:01)
[2018-02-12] MEDS ORDERED: PHENYLEPHRINE 100 MCG/ML 10 ML (ANESTHESIA) SYR ONE (14:35)
[2018-02-12] MEDS ORDERED: OXYTOCIN/NORMAL SALINE 1,000 ML IV ONE (14:44)
[2018-02-12] MEDS ORDERED: OXYTOCIN/NORMAL SALINE 500 ML IV SCH (14:53)
[2018-02-12] MEDS ORDERED: TETANUS,DIPTH,PERTUSS P/F (BOOSTRIX) 0.5 ML VIAL IM SCH (15:00)
[2018-02-12] MEDS ORDERED: ONDANSETRON 4 MG/2 ML (SDV) Z0FRAN IVP PRN (15:00)
[2018-02-12] MEDS ORDERED: HYDROmorphone 2 MG/ML VIAL (DILAUDID) IV PRN (15:00)
[2018-02-12] MEDS ORDERED: MEASLES,MUMPS,RUBELLA 1 EA INJ SC SCH (15:00)
[2018-02-12] MEDS: KETOROLAC 30 MG/ML VIAL IVP SCH ×2 (15:48→21:54)
[2018-02-12 15:58] VITALS: BP 86/58
[2018-02-12 16:40] VITALS: BP 100/61
[2018-02-12 20:30] VITALS: BP 110/59
[2018-02-12] MEDS: HYDROcodone/APAP 5 MG/325 MG (LORTAB) TAB PO PRN (20:32)
--- NOTE | 2018-02-12 21:48 | OPERATIVE REPORT ---
DATE OF SERVICE: PREOPERATIVE DIAGNOSES: 1. A 27-year-old G3, P2 at 39 weeks gestation. 2. Previous section x2. POSTOPERATIVE DIAGNOSES: 1. A 27-year-old G3, P2 at 39 weeks gestation. 2. Previous section x2. PROCEDURE: Repeat low transverse section. SURGEON: Kush Faustin DO HAIRSPRING CUTTER: Julio C Womack MS-3. ANESTHESIA: Spinal. ESTIMATED BLOOD LOSS: 500 mL. URINE OUTPUT: 50 mL. FLUIDS: 1000 mL of lactate Ringer solution. FINDINGS: A live male weighing 8 pounds 4 ounces, Apgars of 8 and 9. Grossly normal appearing uterus, bilateral fallopian tubes and ovaries. Dense adhesions of the subcutaneous fat to the fascia as well as fascial rectus muscle adhesions as well. Diffuse adhesions of the vesicouterine peritoneum that was dense. SPECIMENS SENT: Placenta. INDICATIONS FOR PROCEDURE: This 27-year-old female patient is a consultation to me from [facility] for repeat . She was seen in my office in a preoperative visit and consultation. Risks were reviewed with her there with an metal drilling machine operator. After all of her questions were answered, she was scheduled at 39 weeks again in the preoperative area, we reviewed all the risks and consent was obtained, the patient was taken to the operating room. OPERATIVE REPORT IN DETAIL: Once in the operating room, a spinal analgesia was found to be adequate. She was placed in supine position with a leftward tilt, prepped and draped in normal sterile fashion. Timeout was performed and anesthesia was tested. I then proceeded with making a Pfannenstiel skin incision to the previously existing scar using a knife and carried that down to the underlying fascia using Bovie cautery and during this process, I encountered multiple dense adhesions. There are also previous nylon sutures that were removed that were non-dissolvable in the subcutaneous tissue. The fascial incision is an extended using Bovie cautery. Superior aspect of the fascial incision was then grasped with Camron clamps, tented up and dissected off the underlying rectus muscles. This is very difficult due to the dense adhesions. I do this slowly and meticulously and care was taken not to enter the peritoneum or cause damage to the muscles and the inferior aspect of the fascial incision was then grasped with Camron clamps, tented up and dissected off the underlying rectus muscles. Rectus muscles were then dissected down the midline using Boateng scissors, which exposed the peritoneum, which entered bluntly and extended using blunt traction. Once peritoneal access is obtained, I placed an Angel ring retractor into the peritoneal incision, which offered excellent lateral sidewall retraction. I then identified the lower uterine segment, which is thinned out and making an incision to the vesicouterine peritoneum using knife and bluntly dissected this off the lower uterine segment. I then proceeded with my myotomy until membranes are visualized at which point I extended the uterine incision laterally and superiorly using bandage scissors. Amniotomy was performed. Clear fluid was noted using an Allis clamp. The was found in the vertex presentation. With gentle fundal pressure, the 's head is elevated up to the incision; however, due to the dense adhesions this is a very tight fit. I ended up not being able to put my hand and elevate the head. Therefore, I put a Kiwi suction extractor on the baby's midsagittal suture line applied pressure of 500mm Hg to the suction device and a gentle upward fashion, which allowed delivery of the 's head with gentle extension. Anterior and posterior shoulders were delivered. was then brought to the operative field. The cord was doubly clamped and cut and handed off to waiting nurses in attendance. Cord blood was collected, 3-vessel cord with intact placenta was delivered spontaneously thereafter. IV Pitocin was initiated to facilitate uterine contraction and fundus becomes firmer with bimanual massage. Uterus was then exteriorized and cleared of all endometrial clots and debris. I then closed the uterine incision using 0 Vicryl suture in running locked fashion. Second layer of imbricating 0 Monocryl was placed. Excellent hemostasis was noted after doing this. I then placed the uterus back in the pelvis and copiously irrigated the pelvis with normal saline. Once again, no active bleeding was noted from any of my dissection planes. I then placed Interceed antiadhesive over my low transverse incision and proceeded with closing the peritoneum using 3-0 Vicryl suture in running fashion. Rectus muscle reapproximated using 3-0 Vicryl suture in interrupted fashion. The fascia was reapproximated with 0 Vicryl suture in running fashion. The skin was then reapproximated using 4-0 Monocryl in running subcuticular. Dermabond was applied to the incision and bandages are placed over this. The bandages are adhesed with white tape. The patient tolerated the procedure well and sent to recovery in stable condition. Lap and sponge counts were correct at the end of the procedure. Instrument counts correct as well. Two grams of Ancef were given preoperatively for infection prophylaxis. Job ID: [id number] DocumentID: [id number] Dictated Date: 02/12/2018 14:53:49 Area Development Consultant Date: 02/12/2018 21:47:49 Dictated By: DO ZE CASAREZ
[2018-02-12] MEDS: DOCUSATE SODIUM 100 MG (COLACE) CAP PO SCH (21:54)
[2018-02-12] MEDS: CATHETER FLUSH 10 ML SYR IV SCH (22:07)
[2018-02-13 00:10] VITALS: BP 101/64
[2018-02-13 04:05] VITALS: BP 96/59
[2018-02-13] MEDS: KETOROLAC 30 MG/ML VIAL IVP SCH ×2 (04:10→10:40)
[2018-02-13] MEDS: CATHETER FLUSH 10 ML SYR IV SCH (04:11)
[2018-02-13 05:32] LABS: BASOPHILS % (AUTO) 0 % (0-10); EOSINOPHILS # (AUTO) 0.8 10^3/uL (0.0-0.3); EOSINOPHILS % (AUTO) 9 % (0-10); HEMATOCRIT 32 % (35-52); HEMOGLOBIN 10.3 G/DL (11.5-16.0); LYMPHOCYTES # (AUTO) 2.2 X 10^3 (1.0-4.0); LYMPHOCYTES % (AUTO) 24 % (12-44); MEAN CORPUSCULAR HEMOGLOBIN 28 PG (25-34); MEAN CORPUSCULAR HGB CONC 33 G/DL (32-36); MEAN CORPUSCULAR VOLUME 87 FL (80-99); MEAN PLATELET VOLUME 11.6 FL (7.4-10.4); MONOCYTES # (AUTO) 0.6 X 10^3 (0.0-1.0); MONOCYTES % (AUTO) 7 % (0-12); NEUTROPHILS # (AUTO) 5.4 X 10^3 (1.8-7.8); NEUTROPHILS % (AUTO) 60 % (42-75); PLATELET COUNT 180 10^3/uL (130-400); RED BLOOD COUNT 3.65 10^6/uL (4.35-5.85); RED CELL DISTRIBUTION WIDTH 14.9 % (10.0-14.5)
--- NOTE | 2018-02-13 08:08 | Discharge Inst-Women's Service ---
Discharge Inst-Women's Serv Depart Medication/Instructions New, Converted or Re-Newed RX: RX on Chart Consults/Follow Up Additional Follow Up: Yes Orders/Referrals Dr. Faustin in 7-[address] Merrill in 6 weeks Activity Activity: Activity as Tolerated Driving Instructions: No Driving for 1 Week NO SMOKING: NO SMOKING Nothing Inside Vagina: No Douching, No Vanlue, No Tampons Diet Discharge Diet: No Restrictions Symptoms to Report to : Bleeding Excessive, Pain Increased, Fever Over 101 Degrees F, Vaginal Bleeding Increase, Questions/Concerns For Any Problems or Questions: Contact Your Physician Skin/Wound Care Infection Signs and Symptoms: Increased Redness, Foul Odor of Wound, Increased Drainage, Skin Itchy or Has a Rash, Increased Swelling, Temperature Above 101 F Operative Area Clean and Dry: Keep Incision Clean/Dry Stitches/Hague/Dermabond: Dermabond, Care of Stitches Bathing Instructions: ALEXY Andres DO Feb 13, 2018 08:08
[2018-02-13] MEDS ORDERED: ACHD5005 PO (08:09)
[2018-02-13] MEDS ORDERED: DOCU100C37 PO (08:09)
[2018-02-13] MEDS ORDERED: IBUP-844 PO (08:09)
--- NOTE | 2018-02-13 08:18 | Postpartum Progress Note ---
Note Note Day # [] Subjective: Patient is without complaints. Ambulating, voiding. Tolerating a regular diet without nausea or vomiting. Normal lochia. Pain is well controlled with oral pain medications. Objective: Vital Sign - Last 24 Hours 02/12/18 02/12/18 02/12/18 02/12/18 12:11 15:58 16:40 20:30 Temp 97.7 96.8 97.6 97.3 Pulse 63 52 54 69 Resp 18 18 18 18 B/P (MAP) 109/69 (82) 86/58 (67) 100/61 (74) 110/59 (76) Pulse Ox 99 97 O2 Delivery Room Air Room Air Room Air Room Air 02/13/18 02/13/18 00:10 04:05 Temp 97.5 97.5 Pulse 73 63 Resp 18 18 B/P (MAP) 101/64 (76) 96/59 (71) Pulse Ox 97 97 O2 Delivery Room Air Room Air Intake and Output 02/12/18 02/12/18 02/13/18 15:00 23:00 07:00 Intake Total 500 ml 1050 ml Output Total 1450 ml Balance 500 ml -400 ml Physical Exam: General - Alert and oriented, no apparent distress Abdomen - Soft, appropriately tender to palpation, non-distended, fundus firm at umbilicus Extremities - no edema, negative Babs's bilaterally Incision- c/d/i Assessment: POD 1 RLTCS Plan: Routine care. Encourage breast feeding. Encourage ambulation. Ferrous sulfate supplementation. Plan for discharge tomorrow Vitals - Labs Vital Signs - I&O Vital Signs Date Time Temp Pulse Resp B/P (MAP) Pulse Ox O2 Delivery O2 Flow Rate FiO2 02/13/18 04:05 97.5 63 18 96/59 (71) 97 Room Air 02/13/18 00:10 97.5 73 18 101/64 (76) 97 Room Air 02/12/18 20:30 97.3 69 18 110/59 (76) 97 Room Air 02/12/18 16:40 97.6 54 18 100/61 (74) Room Air 02/12/18 15:58 96.8 52 18 86/58 (67) 99 Room Air 02/12/18 12:11 97.7 63 18 109/69 (82) Room Air I & O 02/13/18 07:00 Intake Total 1550 ml Output Total 1450 ml Balance 100 ml Labs Laboratory Tests 02/12/18 12:27: White Blood Count 6.7, Red Blood Count 4.06L, Hemoglobin 11.6, Hematocrit 35, Mean Corpuscular Volume 86, Mean Corpuscular Hemoglobin 29, Mean Corpuscular Hemoglobin Concent 33, Red Cell Distribution Width 14.4, Platelet Count 200, Mean Platelet Volume 11.7H, Neutrophils (%) (Auto) 54, Lymphocytes (%) (Auto) 28 , Monocytes (%) (Auto) 6, Eosinophils (%) (Auto) 11H, Basophils (%) (Auto) 1, Neutrophils # (Auto) 3.6, Lymphocytes # (Auto) 1.9, Monocytes # (Auto) 0.4, Eosinophils # (Auto) 0.7H, Basophils # (Auto) 0.1 02/13/18 05:24: White Blood Count 9.0, Red Blood Count 3.65L, Hemoglobin 10.3L, Hematocrit 32L, Mean Corpuscular Volume 87, Mean Corpuscular Hemoglobin 28, Mean Corpuscular Hemoglobin Concent 33, Red Cell Distribution Width 14.9H, Platelet Count 180, Mean Platelet Volume 11.6H, Neutrophils (%) (Auto) 60, Lymphocytes (%) (Auto) 24 , Monocytes (%) (Auto) 7, Eosinophils (%) (Auto) 9, Basophils (%) (Auto) 0, Neutrophils # (Auto) 5.4, Lymphocytes # (Auto) 2.2, Monocytes # (Auto) 0.6, Eosinophils # (Auto) 0.8H, Basophils # (Auto) 0.0 Microbiology 02/04/18 MRSA Screen - Final, Complete MRSA not isolated ALEXY WEBER DO Feb 13, 2018 08:18
[2018-02-13] MEDS: DOCUSATE SODIUM 100 MG (COLACE) CAP PO SCH ×2 (08:54→20:52)
[2018-02-13] MEDS: HYDROcodone/APAP 5 MG/325 MG (LORTAB) TAB PO PRN ×2 (08:54→17:18)
[2018-02-13 09:00] VITALS: BP 96/58
--- NOTE | 2018-02-13 09:08 | Anesthesia-Regional Post-Op ---
Regional Patient Condition Mental Status: Alert, Oriented x3 Circulation: Same as Pre-Op Headache: Absent Sensation: Full Recovery Motor Block: Absent Post Op Complications Complications None Follow Up Care/Instructions Patient Instructions None needed. Anesthesia/Patient Condition Patient is doing well, no complaints, stable vital signs, no apparent adverse anesthesia problems. No complications reported per nursing. D/C home per [facility] Criteria: WILLIAMS Bennett CRNA Feb 13, 2018 09:07
[2018-02-13 12:10] VITALS: BP 104/68
[2018-02-13 15:33] VITALS: BP 84/56
[2018-02-13] MEDS: IBUPROFEN 600 MG (MOTRIN) TAB PO SCH ×2 (17:17→22:53)
[2018-02-13 21:00] VITALS: BP 93/63
[2018-02-14 03:00] VITALS: BP 99/64
[2018-02-14] MEDS: IBUPROFEN 600 MG (MOTRIN) TAB PO SCH ×2 (05:37→12:08)
[2018-02-14 08:00] VITALS: BP 100/73
[2018-02-14] MEDS: DOCUSATE SODIUM 100 MG (COLACE) CAP PO SCH (08:09)
--- NOTE | 2018-02-14 09:47 | Postpartum Progress Note ---
Note Note Day # 2 Subjective: Patient showering when I arrived. According to RN and historic interpreter phone patient is without complaints. Ambulating, voiding. Tolerating a regular diet without nausea or vomiting. Normal lochia. Pain is well controlled with oral pain medications. Objective: Vital Sign - Last 24 Hours 02/13/18 02/13/18 02/13/18 02/14/18 12:10 15:33 21:00 03:00 Temp 97.1 96.6 97.4 97.4 Pulse 68 62 63 63 Resp 18 16 14 18 B/P (MAP) 104/68 (80) 84/56 (65) 93/63 (73) 99/64 (76) Pulse Ox 98 97 98 98 O2 Delivery Room Air Room Air Room Air Room Air 02/14/18 08:00 Temp 97.9 Pulse 81 Resp 18 B/P (MAP) 100/73 (82) Pulse Ox 99 O2 Delivery Room Air Intake and Output 02/13/18 02/13/18 02/14/18 15:00 23:00 07:00 Intake Total 1515 ml 920 ml Output Total 1400 ml 1400 ml Balance 115 ml -480 ml Physical Exam: General - Alert and oriented, no apparent distress Abdomen - Soft, appropriately tender to palpation, non-distended, fundus firm at umbilicus Extremities - no edema, negative Babs's bilaterally Incision- c/d/i Assessment: POD 2 RLTCS Plan: Routine care. Encourage breast feeding. Encourage ambulation. Ferrous sulfate supplementation. Plan for discharge today Vitals - Labs Vital Signs - I&O Vital Signs Date Time Temp Pulse Resp B/P (MAP) Pulse Ox O2 Delivery O2 Flow Rate FiO2 02/14/18 08:00 97.9 81 18 100/73 (82) 99 Room Air 02/14/18 03:00 97.4 63 18 99/64 (76) 98 Room Air 02/13/18 21:00 97.4 63 14 93/63 (73) 98 Room Air 02/13/18 15:33 96.6 62 16 84/56 (65) 97 Room Air 02/13/18 12:10 97.1 68 18 104/68 (80) 98 Room Air I & O 02/14/18 07:00 Intake Total 2435 ml Output Total 2800 ml Balance -365 ml Labs Microbiology 02/04/18 MRSA Screen - Final, Complete MRSA not isolated ALEXY WEBER DO Feb 14, 2018 9:47 am
[2018-02-14 12:45] VITALS: BP 100/73
--- NOTE | 2018-02-18 10:35 | Physician Query-Final Dx ---
JOEL SINCLAIR 02/18/18 1035: Final Diagnosis Give Final Diagnosis Please give Final Diagnosis ALEXY WEBER DO 02/18/18 1051: Final Diagnosis Give Final Diagnosis Post op day 2 RLTCS JOEL SINCLAIR Feb 18, 2018 10:35 ALEXY WEBER DO Feb 18, 2018 10:51
== END 2018-02-14 12:45 | disposition home or self-care (01) | DRG 766 ==
LOC: PREOP 13:59 → LDRP 02-12 11:58
PROVIDERS: ADMIT Obstetrics & Gynecology; ATTEND Obstetrics & Gynecology
PROC: 10D00Z1 Extraction of Products of Conception, Low, Open Approach (ICD-10-PCS; principal; 2018-02-12 13:52)
DX: O34.211 Maternal care for low transverse scar from previous cesarean delivery (principal); Z3A.39 39 weeks gestation of pregnancy; Z37.0 Single live birth
CPT/HCPCS: 36415; 85025; 86850; 86900; 86901; 87081; 94664